=== PATIENT | female | born 1980 | race Caucasian/White ===

== ENCOUNTER 2017-12-09 15:42 | Emergency (ER) | payer MEDICAID, SELFPAY ==
[2017-12-09 15:43] VITALS: BP 143/68; PULSE 74; RESP 16; TEMP 37.7; O2SAT 98; BMI 38.9
--- NOTE | 2017-12-09 16:03 | ED.RN ---
PT LEFT WITHOUT BEING SEEN.
== END 2017-12-09 16:45 | disposition left against medical advice (07) ==
LOC: ED 16:24
PROVIDERS: Emergency Provider Emergency Medicine
DX: Z53.21 Procedure and treatment not carried out due to patient leaving prior to being seen by health care provider (principal)

== ENCOUNTER 2018-07-13 22:09 | Emergency (ER) | payer MEDICAID, SELFPAY ==
[2018-07-13 22:11] VITALS: BP 161/99; PULSE 93; RESP 16; TEMP 37.6; O2SAT 99; BMI 35.0
--- NOTE | 2018-07-13 23:44 | ED.VISSUMM ---
- ER Visit Summary Date of Service: 07/13/18 Chief Complaint: Dental pain History of Present Illness: The patient is a 37 F who presents for 2 weeks of gradually worsening right lower dental pain. She states over the last 2 weeks it is been progressively worsening, with difficulty eating due to pain, hot and cold sensitivity in her right lower molars. She states she has bad teeth and no she needs to see a dentist, however August 28 is the first she can get in. She took some leftover antibiotics last week to see if it would help. She is developing jaw swelling and facial swelling, with tenderness in the right side of the neck. She also states she has what seems to be a bite on her right scalp, which her sister has been able to drain pus from. Patient has had subjective chills and sweats. No cough, shortness of breath, chest pain or other complaints at this time. Denies medical history. Physical Examination: Vital signs: Temperature 99.6, hemodynamically stable, no hypoxia on room air General: well nourished, well developed, nontoxic appearing, laying in bed Skin: warm, dry, no pallor HEENT: normocephalic and atraumatic; erythema and fluctuance with a central crusted over area on the right forehead and extending beyond the hairline into the scalp, tracking towards the ear. Right ear is erythematous with tender auricular lymphadenopathy. Oropharynx shows diffuse dental decay, no focal abscesses, no lesions, no tenderness to percussion of the teeth. PERRL, EOMI, moist mucous membranes. Tenderness to the anterior cervical chain on the right, neck is supple and without meningismus Cardiovascular: regular rate and rhythm without murmurs, no peripheral edema, 2+ pulses all distal extremities Respiratory: No increased work of breathing, lungs are clear to auscultation bilaterally, no rales, rhonchi or wheezing Abdominal: Abdomen is soft, nontender with normoactive bowel sounds, no guarding or rebound, no masses MSK: Moves all extremities, no deformities, normal strength Neuro: Awake and alert, oriented ?4. No facial droop, sensation and motor function intact and symmetric Test Results: Abnormal Lab Results 07/13/18 07/13/18 07/13/18 23:50 23:50 23:50 WBC 14.4 H RBC 4.44 Hgb 13.6 Hct 41.3 MCV 93.0 MCH 30.6 MCHC 32.9 RDW 13.1 RDW Differential 44.2 H Plt Count 211 MPV 11.3 Immature Gran % (Auto) 0.200 Neut % (Auto) 57.6 Lymph % (Auto) 32.4 [place] % (Auto) 8.3 Eos % (Auto) 1.3 Baso % (Auto) 0.2 Absolute Neuts (auto) 8.3 H Absolute Lymphs (auto) 4.66 H Total Counted Not Reportable PT 13.9 INR 1.1 APTT 38.3 H Sodium 138 Potassium 3.3 L Chloride 105 Carbon Dioxide 24.0 Anion Gap 9 BUN 10 Creatinine 0.80 Estim Creat Clear Calc 70.50 Est GFR (MDRD) Af Amer 104 Est GFR (MDRD) Non-Af 86 BUN/Creatinine Ratio 12.5 Glucose 88 Lactic Acid Calcium 8.8 Total Bilirubin 0.40 AST 11 L ALT 24 Alkaline Phosphatase 89 Total Protein 7.9 Albumin 4.2 Globulin 3.7 Albumin/Globulin Ratio 1.1 Serum , Qual 07/13/18 07/13/18 23:50 23:50 WBC RBC Hgb Hct MCV MCH MCHC RDW RDW Differential Plt Count MPV Immature Gran % (Auto) Neut % (Auto) Lymph % (Auto) [place] % (Auto) Eos % (Auto) Baso % (Auto) Absolute Neuts (auto) Absolute Lymphs (auto) Total Counted PT INR APTT Sodium Potassium Chloride Carbon Dioxide Anion Gap BUN Creatinine Estim Creat Clear Calc Est GFR (MDRD) Af Amer Est GFR (MDRD) Non-Af BUN/Creatinine Ratio Glucose Lactic Acid 0.5 Calcium Total Bilirubin AST ALT Alkaline Phosphatase Total Protein Albumin Globulin Albumin/Globulin Ratio Serum , Qual NEGATIVE Clinical Impression(s) from Imaging Studies Chest X-Ray 07/14/18 00:00 IMPRESSION: Normal x-ray examination of the chest. Electronically Signed: Emre Tavarez MD at 1:27 EDT , Service support , Medications Given Discontinued Medications Clindamycin Phosphate 600 mg/ (Dextrose) 54 mls @ 162 mls/hr IV X1 ONE Stop: 07/14/18 01:34 Ketorolac Tromethamine (Toradol) 15 mg IV X1 ONE Stop: 07/13/18 23:41 Last Admin: 07/14/18 00:09 Dose: 15 mg Emergency Department Course and Treatment: Patient presents complaining of dental pain, however her examination is concerning for a right-sided facial cellulitis with concern for abscess tracking subcutaneously down the side of the face, especially given the ear involvement and the pain all the way to the right jaw and neck. Because of the concern for deep infection, a CT with contrast was performed of the face and the neck. She has a leukocytosis of 14.4. negative. Lactate normal. No other abnormalities. Chest x-ray showed no acute findings. Patient received Toradol for pain and was started on IV clindamycin for treatment of suspected facial cellulitis. Final disposition is pending results of the CT of the head and neck to determine whether patient needs admission for IV antibiotics or can be managed outpatient. Treatment Plan: [] Disposition: [] Impression: Right facial cellulitis This note was generated with [employer] software. It may contain incorrect words, spelling, and punctuation that were not noted in review of the chart prior to signing <Hyacinth Saldaña - Last Filed: 07/14/18 01:47> - ER Visit Summary Patient was signed out to me to follow-up on CT results. CT did show small periapical abscess of tooth #19 as well as some mild infiltration of the lower right face possibly consistent with cellulitis. I did take an independent history and examination on this patient. She reports that she had an abscess on her right forehead which she squeezed and had purulent drainage and she does have some remaining redness and a small wound in that area the area of erythema measures about 3 x 3 cm. Although she complains of pain extending down the face and back of the scalp skin appears normal to me in these areas I do not see any erythema of the lower face or otherwise on scalp except as noted above. There is no crepitus. Her ear appears normal on my exam. She is not febrile. She is not tachycardic. She does not have any facial abscess. Patient would prefer to go home on oral antibiotics I do feel this is reasonable. She understands to return for new or worsening symptoms and was instructed on specific signs and symptoms to monitor for. We will discharge with clindamycin. This note was generated with Dragon dictation software. It may contain incorrect words, spelling, and punctuation that were not noted in review of the chart prior to signing <Rahul Fitzpatrick - Last Filed: 07/14/18 02:22> ED Disposition <Hyacinth Saldaña - Last Filed: 07/14/18 01:47> <Rahul Fitzpatrick - Last Filed: 07/14/18 02:22> - Plan for ED Patient: Chief Complaint: Dental Referrals: [facility],Dipti Patel [NON-STAFF] -
--- NOTE | 2018-07-13 23:47 | ED.DCSUM_ITS ---
- ER Visit Summary Date of Service: 07/13/18 Chief Complaint: Dental pain History of Present Illness: The patient is a 37 F who presents for 2 weeks of gradually worsening right lower dental pain. She states over the last 2 weeks it is been progressively worsening, with difficulty eating due to pain, hot and cold sensitivity in her right lower molars. She states she has bad teeth and no she needs to see a dentist, however August 28 is the first she can get in. She took some leftover antibiotics last week to see if it would help. She is developing jaw swelling and facial swelling, with tenderness in the right side of the neck. She also states she has what seems to be a bite on her right scalp , which her sister has been able to drain pus from. Patient has had subjective chills and sweats. No cough, shortness of breath, chest pain or other complaints at this time. Denies medical history. Physical Examination: Vital signs: Temperature 99.6, hemodynamically stable, no hypoxia on room air General: well nourished, well developed, nontoxic appearing, laying in bed Skin: warm, dry, no pallor HEENT: normocephalic and atraumatic; erythema and fluctuance with a central crusted over area on the right forehead and extending beyond the hairline into the scalp, tracking towards the ear. Right ear is erythematous with tender auricular lymphadenopathy. Oropharynx shows diffuse dental decay, no focal abscesses, no lesions, no tenderness to percussion of the teeth. PERRL, EOMI, moist mucous membranes. Tenderness to the anterior cervical chain on the right , neck is supple and without meningismus Cardiovascular: regular rate and rhythm without murmurs, no peripheral edema, 2 + pulses all distal extremities Respiratory: No increased work of breathing, lungs are clear to auscultation bilaterally, no rales, rhonchi or wheezing Abdominal: Abdomen is soft, nontender with normoactive bowel sounds, no guarding or rebound, no masses MSK: Moves all extremities, no deformities, normal strength Neuro: Awake and alert, oriented ?4. No facial droop, sensation and motor function intact and symmetric Test Results: Abnormal Lab Results 07/13/18 07/13/18 07/13/18 23:50 23:50 23:50 WBC 14.4 H RBC 4.44 Hgb 13.6 Hct 41.3 MCV 93.0 MCH 30.6 MCHC 32.9 RDW 13.1 RDW Differential 44.2 H Plt Count 211 MPV 11.3 Immature Gran % (Auto) 0.200 Neut % (Auto) 57.6 Lymph % (Auto) 32.4 [place] % (Auto) 8.3 Eos % (Auto) 1.3 Baso % (Auto) 0.2 Absolute Neuts (auto) 8.3 H Absolute Lymphs (auto) 4.66 H Total Counted Not Reportable PT 13.9 INR 1.1 APTT 38.3 H Sodium 138 Potassium 3.3 L Chloride 105 Carbon Dioxide 24.0 Anion Gap 9 BUN 10 Creatinine 0.80 Estim Creat Clear Calc 70.50 Est GFR (MDRD) Af Amer 104 Est GFR (MDRD) Non-Af 86 BUN/Creatinine Ratio 12.5 Glucose 88 Lactic Acid Calcium 8.8 Total Bilirubin 0.40 AST 11 L ALT 24 Alkaline Phosphatase 89 Total Protein 7.9 Albumin 4.2 Globulin 3.7 Albumin/Globulin Ratio 1.1 Serum , Qual 07/13/18 07/13/18 23:50 23:50 WBC RBC Hgb Hct MCV MCH MCHC RDW RDW Differential Plt Count MPV Immature Gran % (Auto) Neut % (Auto) Lymph % (Auto) [place] % (Auto) Eos % (Auto) Baso % (Auto) Absolute Neuts (auto) Absolute Lymphs (auto) Total Counted PT INR APTT Sodium Potassium Chloride Carbon Dioxide Anion Gap BUN Creatinine Estim Creat Clear Calc Est GFR (MDRD) Af Amer Est GFR (MDRD) Non-Af BUN/Creatinine Ratio Glucose Lactic Acid 0.5 Calcium Total Bilirubin AST ALT Alkaline Phosphatase Total Protein Albumin Globulin Albumin/Globulin Ratio Serum , Qual NEGATIVE Clinical Impression(s) from Imaging Studies Chest X-Ray 07/14/18 00:00 IMPRESSION: Normal x-ray examination of the chest. Electronically Signed: Emre Tavarez MD at 1:27 EDT , Service support , Medications Given Discontinued Medications Clindamycin Phosphate 600 mg/ (Dextrose) 54 mls @ 162 mls/hr IV X1 ONE Stop: 07/14/18 01:34 Ketorolac Tromethamine (Toradol) 15 mg IV X1 ONE Stop: 07/13/18 23:41 Last Admin: 07/14/18 00:09 Dose: 15 mg Emergency Department Course and Treatment: Patient presents complaining of dental pain, however her examination is concerning for a right-sided facial cellulitis with concern for abscess tracking subcutaneously down the side of the face, especially given the ear involvement and the pain all the way to the right jaw and neck. Because of the concern for deep infection, a CT with contrast was performed of the face and the neck. She has a leukocytosis of 14.4. negative. Lactate normal. No other abnormalities. Chest x- ray showed no acute findings. Patient received Toradol for pain and was started on IV clindamycin for treatment of suspected facial cellulitis. Final disposition is pending results of the CT of the head and neck to determine whether patient needs admission for IV antibiotics or can be managed outpatient. Treatment Plan: [] Disposition: [] Impression: Right facial cellulitis This note was generated with [employer] software. It may contain incorrect words, spelling, and punctuation that were not noted in review of the chart prior to signing <Hyacinth Saldaña - Last Filed: 07/14/18 01:47> - ER Visit Summary Patient was signed out to me to follow-up on CT results. CT did show small periapical abscess of tooth #19 as well as some mild infiltration of the lower right face possibly consistent with cellulitis. I did take an independent history and examination on this patient. She reports that she had an abscess on her right forehead which she squeezed and had purulent drainage and she does have some remaining redness and a small wound in that area the area of erythema measures about 3 x 3 cm. Although she complains of pain extending down the face and back of the scalp skin appears normal to me in these areas I do not see any erythema of the lower face or otherwise on scalp except as noted above. There is no crepitus. Her ear appears normal on my exam. She is not febrile. She is not tachycardic. She does not have any facial abscess. Patient would prefer to go home on oral antibiotics I do feel this is reasonable. She understands to return for new or worsening symptoms and was instructed on specific signs and symptoms to monitor for. We will discharge with clindamycin. This note was generated with Dragon dictation software. It may contain incorrect words, spelling, and punctuation that were not noted in review of the chart prior to signing <Rahul Fitzpatrick - Last Filed: 07/14/18 02:22> ED Disposition <Hyacinth Saldaña - Last Filed: 07/14/18 01:47> <Rahul Fitzpatrick - Last Filed: 07/14/18 02:22> - Plan for ED Patient: Chief Complaint: Dental Referrals: [facility],Dipti Patel [NON-STAFF] -
--- NOTE | 2018-07-14 | RAD_ITS ---
STUDY: X-RAY CHEST REASON FOR EXAM: Female, 37 years old. Fever. TECHNIQUE: Single AP portable view of the chest. COMPARISON: None. FINDINGS: The lungs are clear and expanded. There is no demonstrated pleural abnormality. Normal size heart. Normal mediastinum and anny. Normal visualized pulmonary arteries. Normal visualized aortic arch and descending thoracic aorta. Normal visualized thoracic spine. Normal visualized ribs, clavicles, and shoulders. There is no demonstrated abnormality of the visualized soft tissue structures of the upper abdomen. RAD/Chest 1 View (Portable) IMPRESSION: Normal x-ray examination of the chest. Electronically Signed: Emre Tavarez MD at 1:27 EDT , Service support ,
[2018-07-14] MEDS: Ketorolac 15 MG/ML Vial IV (00:09)
[2018-07-14 00:16] VITALS: BP 106/71; PULSE 86; RESP 16; TEMP 36.6; O2SAT 100
[2018-07-14 00:24] LABS: Absolute Lymphocyte Count 4.66 X10^3/ul (0.83-4.51); Absolute Neutrophil Count 8.3 X10^3/uL (2.0-7.7); Basophil# 0.03 X10^3/uL; Basophil% 0.2 % (0-1); Eosinophil# 0.19 X10^3/uL; Eosinophils% 1.3 % (0-5); Hematocrit 41.3 % (37-47); Hemoglobin 13.6 g/dl (12.0-15.0); Lymphocyte # 4.66 X10^3/ul (4.0); Lymphocyte % 32.4 % (19-41); Mean Corp Hgb Conc 32.9 g/gl (32-36); Mean Corpuscular Hgb 30.6 pg (27.0-32.0); Mean Platelet Vol. 11.3 fl (6.2-12.0); Monocyte% 8.3 % (0-10); Neutrophil # 8.27 X10^3/uL (2.7-7.7); Neutrophil % 57.6 % (47-70); Platelet Count 211 K/mm3 (150-450); RBC Distribution Width CV 13.1 % (11.6-14.6); RBC Distribution Width SD 44.2 fl (35.1-43.9); Red Blood Count 4.44 M/mm3 (4.2-5.4); White Blood Count 14.4 K/mm3 (4.4-11.0)
[2018-07-14 00:25] LABS: POSITIVE COUNT NO; POSITIVE DIFFERENTIAL NO; POSITIVE MORPHOLOGY NO
[2018-07-14 00:27] LABS: International Normalized Ratio 1.1; Prothrombin Time (Protime)PT. 13.9 SECONDS (11.7-14.9)
[2018-07-14 00:28] LABS: Partial Thromboplast Time 38.3 Seconds (24.1-36.2)
[2018-07-14 00:36] LABS: ALB/GLOB Ratio 1.1 RATIO (0.9-2.4); AST(SGOT) 11 U/L (15-37); Alanine Aminotransfer ALT/SGPT 24 U/L (13-56); Albumin, Serum 4.2 g/dL (3.2-5.0); Alkaline Phosphatase 89 U/L (45-117); Anion Gap 9 (5-15); BUN 10 mg/dL (7-18); BUN/Creat Ratio 12.5 RATIO (10-20); Calcium,Total 8.8 mg/dL (8.5-10.1); Chloride 105 mmol/L (98-107); EST Glomerular Filtration Rate 86 mL/min (>60); Est Glom Filt Rate - Afr Amer 104 mL/min (>60); Globulin 3.7 g/dL (2.2-4.2); Glucose 88 mg/dL (74-106); Potassium 3.3 mmol/L (3.5-5.1); Protein, Total 7.9 g/dL (6.4-8.2); Sodium Level 138 mmol/L (136-145)
[2018-07-14 00:45] LABS: Lactic Acid 0.5 mmol/L (0.4-2.0)
[2018-07-14 00:49] LABS: Pregnancy, Serum, hCG Quali. NEGATIVE Negative (0-9 Nonpreg)
[2018-07-14 01:14] VITALS: BP 144/100; PULSE 82; RESP 16; O2SAT 98
[2018-07-14 02:11] VITALS: BP 127/108; PULSE 92; RESP 16; O2SAT 95
--- NOTE | 2018-07-14 02:22 | ED.DEP ---
ED Disposition - Plan for ED Patient: Chief Complaint: Dental Instructions: ED Abscess Dental, ED Cellulitis Facial Prescriptions: Clindamycin HCl [Cleocin] 300 mg PO Q8H #30 cap Referrals: [facility],Dipti Patel [NON-STAFF] -
[2018-07-14 02:33] VITALS: BP 134/79; PULSE 89; RESP 16; O2SAT 100
[2018-07-14] MEDS: Acetaminophen 325 MG Tablet 650 MG PO (02:38)
--- NOTE | 2018-07-14 23:41 | CT_ITS ---
STUDY: CT SOFT TISSUE NECK WITH CONTRAST REASON FOR EXAM: Female, 37 years old. Tooth pain and facial swelling. Elevated white blood cell count. RADIATION DOSAGE (If Supplied By Facility): CTDIvol = ( 18.80 ) mGy, DLP = ( 882.02 ) mGycm TECHNIQUE: The patient was scanned in a multi-detector CT scanner. High resolution transaxial imaging was performed following intravenous administration of 75ML ml of Isovue 300 contrast material. Sagittal and coronal images were reconstructed. Individualized dose optimization techniques were used for this CT. COMPARISON: None. FINDINGS: There is mild infiltration of subcutaneous fat overlying the lower right side of the face, which may represent cellulitis. A specific etiology is not evident. There is a small periapical abscess of lower left molar tooth #19. There is no visualized disruption of overlying alveolar cortex and there is no demonstrated adjacent soft tissue swelling or abscess. There are multiple untreated dental caries. Normal bilateral parotid glands. Normal bilateral radio communication coordinator spaces. Normal bilateral parapharyngeal spaces. Normal bilateral carotid spaces. Normal bilateral sublingual and submandibular glands and spaces. Normal visualized nasopharynx. Normal retropharyngeal space. Normal perivertebral space. Normal visualized bilateral faucial tonsils. There is a mildly lobulated prominence of the tongue base, but without a discrete mass, suggestive of lymphoid hyperplasia. Mucosal disease cannot be excluded, and direct visualization is recommended. There are minimally enlarged bilateral level 2 lymph nodes of the neck, with preservation of normal tatianna architecture, consistent with a reactive lymph hyperplasia. There is no demonstrated solid or cystic mass lesion. There is no abnormal contrast enhancement. Normal epiglottis, bilateral vallecula and hypopharynx. The pre-epiglottic and paraglottic adipose spaces are normal. Normal visualized bilateral piriform sinuses, aryepiglottic folds, vocal cords, and arytenoid-cricoid articulations. Normal subglottic trachea. Normal bilateral lobes of the thyroid gland. Normal visualized pulmonary apices. Normal visualized paranasal sinuses. Normal visualized cervical spine. CT/Soft Tissue Neck WITH Contrast IMPRESSION: Small periapical abscess of lower left molar tooth #19, with no demonstrated disruption of overlying cortex or visible evidence for spread of infection into adjacent soft tissues.. Multiple untreated dental caries. Mildly hyperplastic level 2 cervical lymph nodes bilaterally. Lymphoid hyperplasia of the base the tongue. Mild infiltration of subcutaneous fat over the lower right side of the face, possibly representing cellulitis. Specific etiology is not evident. No demonstrated soft tissue mass or abscess. Electronically Signed: Emre Tavarez MD at 2:05 EDT , Service support ,
--- NOTE | 2018-07-14 23:41 | CT_ITS ---
STUDY: CT FACIAL BONES WITH CONTRAST REASON FOR EXAM: Female, 37 years old. To pain and facial swelling RADIATION DOSAGE (If Supplied By Facility): CTDIvol = ( 18.80 ) mGy, DLP = ( 882.02 ) mGycm TECHNIQUE: The patient was scanned in a multi detector CT scanner. Transaxial imaging was performed following the intravenous administration of 75ML ml of Isovue 300 contrast material. Sagittal and coronal images were reconstructed. Individualized dose optimization techniques were used for this CT. COMPARISON: None. FINDINGS: Visualized portions of the brain are unremarkable. No scalp abnormalities. Orbital globes, retro-orbital soft tissues, and periorbital soft tissues are unremarkable soft tissues of the cheek are unremarkable. Evaluation of the gingival soft tissues is limited due to hard beam artifact from the patient's dental amalgam. No definitive periodontal abscess. Belting Inspector spaces and parapharyngeal fat planes are symmetrically preserved. Pharyngeal soft tissues are normal. Airway is patent. Salivary glands are unremarkable. Shot[place] bilateral submandibular and cervical chain lymph nodes. No frontal bone or nasal bone fracture. No orbital wall or maxillary sinus wall fracture. Zygomatic arches and pterygoid plates are intact. Temporomandibular joints are normal alignment. No mandibular fracture. Dental caries noted within the second left mandibular molar with subtle periapical lucency surrounding the root. Normal visualized paranasal sinuses. CT/Sinus/Facial Bone WITH Contras IMPRESSION: 1. Dental caries within the left second mandibular molar with periapical lucency suggesting small periapical abscess. No definitive adjacent gingival soft tissue abnormality, though evaluation is limited due to hard beam artifact from patient's dental amalgam. Electronically Signed: Zack De Jesus MD at 2:11 EDT Tel , Service support ,
== END 2018-07-14 02:39 | disposition home or self-care (01) ==
LOC: ED 23:41
PROVIDERS: Emergency Provider Emergency Medicine
DX: K04.7 Periapical abscess without sinus (principal); L03.211 Cellulitis of face; B96.89 Other specified bacterial agents as the cause of diseases classified elsewhere
CPT/HCPCS: 70487; 70491; 71045; 80053; 83605; 84703; 85025; 85610; 85730; 87040; 96365; 96375; 99284; J7030; Q9967; A4216

== ENCOUNTER 2019-07-08 11:30 | Emergency (ER) | payer MEDICAID, SELFPAY ==
[2019-07-08 11:31] VITALS: BP 159/83; PULSE 102; RESP 16; TEMP 36.4; O2SAT 99; BMI 33.5
--- NOTE | 2019-07-08 12:05 | ED.DCSUM_ITS ---
History of Present Illness Informant: Patient Occurred: Yesterday Mechanism/Context: - - no injury Onset: Yesterday Context: Gradual Onset Timing: Continuous Quality of Pain: Aching Location: right ring finger Current Severity: Severe Maximum Severity: Severe Worsened by: nothing Relieved by: nothing Associated Symptoms: Negative for: Parasthesia, Weakness, Loss of Funtion Narrative: 38-year-old female [id number] presents requesting removal of her ring on her right ring finger. Noticed that if he began to have swelling in her hands yesterday which she feels is from her being working outside in the heat. No trauma or injury. No numbness or tingling. She has been unsuccessful removing it at home. She denies any other review of systems. Tetanus Immunization: Unknown Prior similar symptoms: No Recent Illness/Hospitalization: No <David Walters - Last Filed: 07/08/19 12:06> <Jersey Hennessy - Last Filed: 07/08/19 14:48> Chief Complaint: Foreign Body Past Medical History Prior records reviewed: Yes Past Medical History: None Surgical History: noncontributory Smoking Status: Current every day smoker <David Walters - Last Filed: 07/08/19 12:06> <Jersey Hennessy - Last Filed: 07/08/19 14:48> - Allergies and Home Meds Allergies/Adverse Reactions: Allergies No Known Allergies Allergy (Verified 07/08/19 11:31) Primary Care Physician: Norris Ambriz MD [NON-STAFF] - Care Physician,No Primary [Primary Care Provider] - Review of Systems All systems negative except as indicated General: Denies: Chills, Fever Musculoskeletal: Reports: Swelling, Extremity Pain <David Walters - Last Filed: 07/08/19 12:06> Physical Exam Vital Signs/Narrative: Vital Signs Temp Pulse Resp BP Pulse Ox 07/08/19 11:31 97.5 F L 102 H 16 159/83 H 99 Inital Vital Signs reviewed: Yes Right Finger: - - Patient has swelling of all 5 fingers on both hands, no redness no signs of trauma no evidence of the rash, she is not having any pain on either hand. The ring on her right index finger is stuck just distal to the MCP joint. Cap refill and sensation are normal. Limited range of motion due to swelling. General: Well nourished, Well developed Head: Normocephalic, Atraumatic Eyes: Perrl, EOMI ENT: No Trauma Neck: Nontender, Full ROM Cardiovascular: Regular rate, Regular rhythm Respiratory: No distress, CTA bilaterally, Chest nontender Back: Nontender Skin: Normal color, No rash, No Trauma Neurological: Alert, Oriented x3 <David Walters - Last Filed: 07/08/19 12:06> Vital Signs/Narrative: Vital Signs Temp Pulse Resp BP Pulse Ox 07/08/19 11:31 97.5 F L 102 H 16 159/83 H 99 <Jersey eHnnessy - Last Filed: 07/08/19 14:48> Diagnostic/Tx/Re-eval - Medical Decision Making Ring on right index finger was removed by nursing staff without difficulty. On repeat evaluation the patient has normal range of motion she is no longer having pain her capillary refill and sensation are both normal as is her two-point discrimination. There are no signs of infection. Mutually agreed that x-rays not indicated. Patient will be discharged and advised on return precautions <David Walters - Last Filed: 07/08/19 12:06> - Medical Decision Making I saw the patient in conjunction with the physician fast food sales assistant. She has a ring stuck on her thumb. Distal swelling on exam. Neurovascular intact. Rings were cut off by nursing. Patient tolerated this well. Outpatient follow-up. <Jersey Hennessy - Last Filed: 07/08/19 14:48> ED Disposition <RomeoDavid - Last Filed: 07/08/19 12:06> <GerhardJersey - Last Filed: 07/08/19 14:48> - Plan for ED Patient: Disposition: Home or Assisted Living Diagnosis: Ring removed from right ring finger Instructions: FOREIGN BODY, Soft Tissue [Removed] Prescriptions: Azithromycin [Zithromax Z-Seferino] 250 mg PO UD #1 box Prescription Printed Referrals: Care Physician,No Primary [Primary Care Provider] - Norris Ambriz MD [NON-STAFF] -
== END 2019-07-08 12:18 | disposition home or self-care (01) ==
PROVIDERS: Emergency Provider Physician Assistant Medical
DX: S60.454A Superficial foreign body of right ring finger, initial encounter (principal); X58.XXXA Exposure to other specified factors, initial encounter; Y93.89 Activity, other specified; F17.200 Nicotine dependence, unspecified, uncomplicated
CPT/HCPCS: 99282

== ENCOUNTER 2024-10-13 13:26 | Emergency (ER) | payer MEDICAID, SELFPAY ==
[2024-10-13 13:26] VITALS: BP 170/92; PULSE 95; RESP 14; TEMP 36.6; O2SAT 99; BMI 43.0
--- NOTE | 2024-10-13 13:32 | EDS_ITS ---
HPI History of Present Illness Chief Complaint: Dental Informant: patient Onset/Context/Timing Onset: Yesterday Context: Gradual Onset Timing: Continuous Quality: Stabbing, aching Location: Left upper premolar Worsened by: Activity Relieved by: - (Nothing) Associated Symptoms Assocated Symptom - Dental: jaw swelling, face swelling, cold sensitivity and hot sensitivity; Negative for fever Narrative Narrative: Patient presents with dental pain that has been getting worse since yesterday. Patient states it is gradually getting worse. Patient states that she woke up today and felt some swelling over her left upper premolars and left cheek. Patient denies any fevers but admits to some subjective chills. Patient was to facial and jaw swelling. Patient also admits to hot and cold sensitivity. Patient states she has been trying to contact the dentist but is unsure if she can see a dentist who takes her insurance. PFSH PFSH Medical History no medical history no medical history Home Medications ?Medication ?Instructions ?Recorded ?Last Taken ?Type azithromycin 250 mg tablet 250 mg PO UD ##1 07/08/19 Unknown Rx penicillin V potassium 500 mg 500 mg PO 4X/DAY #40 tabs 10/13/24 Unknown Rx tablet Allergy/AdvReac Type Severity Reaction Status Date / Time No Known Allergies Allergy Verified 10/13/24 13:26 Surgical History (Updated 10/13/24 @ 13:[address] Miko Santos DO) Hx of section Social History Smoking Status: Current every day smoker ROS ROS ED Constitutional Constitutional ED: Denies chills or fever(s) Eyes Eyes: Denies blurry vision or change in vision ENT ENT ED: Denies rhinorrhea or sore throat Cardiovascular Cardiovascular: Denies chest pain or palpitations Respiratory/Chest Respiratory/Chest: Denies cough or dyspnea Gastrointestinal Gastrointestinal: Denies nausea or vomiting Genitourinary Genitourinary ED: Denies dysuria or hematuria Musculoskeletal Musculoskeletal: Denies back pain or neck pain Integumentary Denies abscess or rash Neurologic Neurologic: Denies headache(s) or weakness Allergic/Immunologic Allergic/Immunologic ED: Denies mouth swelling or urticaria EXAM Physical Exam Const Vital Signs: 10/13/24 13:26 Temperature 98 F Temperature Source Temporal Pulse Rate 95 Respiratory Rate 14 Blood Pressure 170/92 H Blood Pressure Mean 118 Pulse Ox 99 Oxygen Delivery Method Room Air Positive well nourished and well developed General Appearance ED: well developed and NAD HEENT HEENT Narrative: There are multiple dental caries noted. There is tenderness over the left upper first premolar. There is mild gingival edema around this tooth. There is no fluctuance. There is no evidence of any abscess. Oropharynx is clear. Airway is patent. Neck is supple. Trachea is midline. There is no sublingual edema. There is no evidence of Ramesh's angina. Mouth ED: Yes oral and palatal mucosa normal Mouth: oral and palatal mucosa normal Teeth and Gingiva: caries and gingiva abnormal Positive for gingival edema Throat: posterior oropharynx normal Eyes PERRL and EOMs intact bilaterally Neck supple and no JVD General: Negative for anterior neck swelling, tenderness or submandibular swelling Neuro oriented x3, CN's II-XII intact bilaterally, moves all extremities, no focal motor deficits and no sensory deficits noted Sensorium / Orientation: alert Motor Exam: strength 5/5 throughout MDM MDM MDM Narrative Medical decision making narrative: Smoking cessation was discussed. Patient was advised that these are infected dental caries. Patient was given a dose of Pen-Vee K here. Patient was given a prescription for Pen-Vee K. Patient was instructed to take Tylenol or ibuprofen as needed for pain. Patient was instructed to follow-up with a dentist. Patient was given a dental referral list. Patient was instructed to return if worse in any way. Patient understood and was agreeable with the plan. All questions were answered. Discharge Plan Triage Chief Complaint: Dental ED Provider: Miko Santos Dx/Rx/DC Orders Clinical Impression: Infected dental caries, Tobacco use Instructions: ED Dental Pain, ED Dental Cavity Prescriptions: New penicillin V potassium 500 mg tablet 500 mg PO 4X/DAY Qty: 40 0RF No Action azithromycin 250 MG tablet 250 mg PO UD Qty: 1 0RF Rx Instructions: TAKE 2 TABLETS 1ST DAY THEN 1 TABLET DAILY FOR NEXT 4 DAYS. Primary Care Provider: Care Physician,No Primary Referrals: Care Physician,No Primary [Primary Care Provider] - Dentist,Your [STAFF PHYSICIAN] - 5-7 Days Print Language: Mongolian Disposition Disposition: Home, Self Care
[2024-10-13] MEDS: Penicillin Vk 250 MG Tablet 500 MG PO (14:06)
== END 2024-10-13 14:09 | disposition home or self-care (01) ==
PROVIDERS: Emergency Provider Emergency Medicine; Visit Provider Emergency Medicine
DX: K04.7 Periapical abscess without sinus (principal); K02.9 Dental caries, unspecified; F17.200 Nicotine dependence, unspecified, uncomplicated
CPT/HCPCS: 99282

== ENCOUNTER 2025-02-13 08:48 | Emergency (ER) | payer MEDICAID, SELFPAY ==
[2025-02-13 08:48] VITALS: BP 169/97; PULSE 81; RESP 19; TEMP 36.8; O2SAT 98; BMI 40.8
[2025-02-13] MEDS: Ibuprofen 600 MG Tablet PO (09:11)
[2025-02-13] MEDS: Amox/Clavulanate 875 MG Tablet PO (09:12)
--- NOTE | 2025-02-13 09:26 | EDS_ITS ---
HPI History of Present Illness Chief Complaint: Dental Informant: patient and spouse/S.O. Narrative Narrative: Right upper dental pain yesterday hot cold sensitivities. We can warming the right side of the face. Call your dentist appointment 1 week. No antibiotic allergies. No fevers. No trouble swallowing. History of similar in the past she has had extractions multiple ones in the last year. States there are plans for full extraction of her upper dentition. Prior similar symptoms: Yes PFSH PFSH Home Medications ?Medication ?Instructions ?Recorded ?Last Taken ?Type azithromycin 250 mg tablet 250 mg PO UD ##1 07/08/19 U nknown Rx ibuprofen 600 mg tablet 600 mg PO Q8H PRN PRN pain # 10 10/13/24 Unknown Rx TABLETS penicillin V potassium 500 mg 500 mg PO 4X/DAY #40 tab s 10/13/24 Unknown Rx tablet amoxicillin 875 mg-potassium 875 mg PO Q12H #20 TABLET S 02/13/25 Unknown Rx clavulanate 125 mg tablet ibuprofen 600 mg tablet 600 mg PO Q6H PRN PRN pain # 20 02/13/25 Unknown Rx TABLETS Allergy/AdvReac Type Severity Reaction Status Date / Time No Known Allergies Allergy Verified 02/13/25 08:48 Surgical History Hx of section Social History Smoking Status: Current every day smoker tobacco type: cigarettes ROS ROS ED Constitutional Constitutional ED: Denies chills, fever(s) or sweats ENT ENT ED: Reports other Details: Facial swelling, dental pain ; Denies sore throat Cardiovascular Cardiovascular: Denies chest pain, leg edema, palpitations or racing heartbeat Respiratory/Chest Respiratory/Chest: Denies cough, dyspnea or dyspnea on exertion Gastrointestinal Gastrointestinal: Denies abdominal pain, diarrhea, nausea or vomiting Genitourinary Genitourinary ED: Denies dysuria, hematuria or urinary frequency Musculoskeletal Musculoskeletal: Denies back pain, extremity pain or neck pain Integumentary Denies rash or wounds Neurologic Neurologic: Denies headache(s), paresthesias or weakness EXAM Physical Exam Const Vital Signs: 02/13/25 08:48 Temperature 98.3 F Temperature Source Oral Pulse Rate 81 Respiratory Rate 19 H Blood Pressure 169/97 H Blood Pressure Mean 121 Pulse Ox 98 Oxygen Delivery Method Room Air Positive well nourished and well developed General Appearance ED: well developed and NAD HEENT Reports moist mucous membranes HEENT Narrative: There has been previously extracted teeth for through 12, there is decayed tooth 13. There is focal swelling of the gum #4. There is no fluctuance of the gumline. There is maxillary swelling. Dental fillings of tooth #2 and 3 no tenderness to percussion. No sublingual edema. Airway patent. No trismus. normocephalic Eyes General Eye ED: Yes normal appearance of both eyes Neck full ROM Chest Wall Chest: Negative for tenderness Resp normal respiratory effort and normal air movement Effort and Inspection: symmetric chest movement; Negative for respiratory distress Cardio regular rate, regular rhythm and no murmurs Peripheral Pulses: pulses 2+ throughout GI normal to inspection, nondistended, normoactive bowel sounds and non-tender Palpation: Negative for guarding or rebound tenderness present Extremity normal to inspection General Extremety ED: Negative for edema or tenderness General Extremity: Negative for edema Neuro oriented x3 and no sensory deficits noted Sensorium / Orientation: awake and alert Skin no rashes or lesions noted and no wounds MDM MDM MDM Narrative Medical decision making narrative: Interventions / MDM: Differential diagnosis: Gingivitis, abscess of the gums Diagnosis considered but do not suspect: No clinical signs of Ramesh angina My EKG interpretation: N/A Imaging independently reviewed and interpreted by myself: N/A External documents reviewed: N/A Test considered but not ordered:N/A ED course: Patient's. Her primary issue is gum #4 likely abscessed and maxillary. There is no fluctuance of the gumline amenable to incision and drainage. I will start her on Augmentin and ibuprofen. She will keep her follow-up with her dentist. Reported similar symptoms swelling this past September for which she was seen that improved with antibiotics. All her questions were answered. Re-evaluation: stable Disposition discussed with patient/family/significant other: Patient and significant other Case discussed with consulting clinician: N/A This note was generated with [employer] dictation software. It may contain incorrect words, spelling, and punctuation that were not noted in checking the note before signing. Discharge Plan Triage Chief Complaint: Dental ED Provider: Paolo Sumner Dx/Rx/DC Orders Clinical Impression: Gingivitis, Gingival abscess Instructions: ED Dental Abscess Prescriptions: New ibuprofen 600 mg tablet 600 mg PO Q6H PRN PRN (Reason: pain) Qty: 20 0RF amoxicillin-pot clavulanate 875-125 mg tablet 875 mg PO Q12H Qty: 20 0RF No Action azithromycin 250 MG tablet 250 mg PO UD Qty: 1 0RF Rx Instructions: TAKE 2 TABLETS 1ST DAY THEN 1 TABLET DAILY FOR NEXT 4 DAYS. penicillin V potassium 500 mg tablet 500 mg PO 4X/DAY Qty: 40 0RF ibuprofen 600 mg tablet 600 mg PO Q8H PRN PRN (Reason: pain) Qty: 10 0RF Primary Care Provider: Care Physician,No Primary Referrals: Care Physician,No Primary [Primary Care Provider] - Activity Restrictions/Additional Instructions: Take and finish antibiotic as prescribed. Follow-up with your dentist as scheduled. Print Language: German Disposition Disposition: Home, Self Care
[2025-02-13 09:32] VITALS: BP 136/78; PULSE 64; RESP 18; TEMP 36.6; O2SAT 99
== END 2025-02-13 09:33 | disposition home or self-care (01) ==
LOC: ED 09:27
PROVIDERS: Emergency Provider Emergency Medicine; Visit Provider Emergency Medicine
DX: K05.20 Aggressive periodontitis, unspecified (principal); K05.10 Chronic gingivitis, plaque induced; K02.9 Dental caries, unspecified; F17.210 Nicotine dependence, cigarettes, uncomplicated; Z98.818 Other dental procedure status; Z98.811 Dental restoration status
CPT/HCPCS: 99283

== ENCOUNTER 2025-07-20 11:16 | Emergency (ER) | payer MEDICAID, SELFPAY ==
[2025-07-20 11:17] VITALS: BP 135/82; PULSE 89; RESP 16; TEMP 37; O2SAT 98; BMI 41.8
[2025-07-20 17:21] VITALS: BP 123/73; PULSE 72; RESP 20; O2SAT 96
--- OUTSIDE RECORDS SUMMARY | 2025-07-20 17:29 | XMS RPT_ITS | CCD ---
Author Organization [facility] Care Team Providers Care Auto Body Mechanic Apprentice Name Role Phone Aleyda Davies Unavailable Unavailable LYSSA DUNAWAY Unavailable Unavailable JOEL SERVIN DO Admitting Unavailable VOLJOEL Serrato DO Attending Unavailable VOLJOEL Serrato DO Primary Care Unavailable NO, DOCTOR ON Consulting Unavailable NO, DOCTOR ON Referring Unavailable Unavailable Primary Care Provider Unavaillorenzo e MG GARRIDO Attending Unavailable NO, PHYSICIAN Primary Care Unavailable MG GARRIDO Admitting Unavailable NO, PHYSICIAN Primary Care Unavailable ANDRES DE LA TORRE Attending Unavailable Required, No Pcp Unavailable Unavailable Ru Castro Unavailable Care Physician, No Primary Primary Care Unava ilable Paolo Sumner Attending Unavailable Care Physician, No Primary Primary Care Unava ilable Miko Santos Attending Unavailable Medications Current Medications Medication Drug Class(es) Dates Sig (Normalized) Sig (Original) ciprofloxacin 3 mg/ml / dexamethasone 1 mg/ml otic suspension (2 sources) Corticosteroid, Quinolone Antimicrobial Start: 04-21-2022 End: 04-27-2022 Ciprodex 0.3%-0.1% otic suspension ; 4 drop(s) in each affected ear 2 times a day Quantity: 1 Refills: 0 Ordered: 21-Apr-2022 Ru Castro Start: 21-Apr-2022 End: 27-Apr-2022 Generic Substitution Allowed Comments: For the ear.Shake well before use. Start: 08-11-2020 End: 08-18-2020 ciprofloxacin-dexamethasone (CIPRODEX) 0.3-0.1 % otic suspension Place 4 drops into the left ear 2 times daily for 7 days 1 Bottle 0 08/11/2020 08/18/2020 Active Comment on above: For the ear.Shake we ll before use. ibuprofen 800 mg oral tablet (2 sources) Nonsteroidal Anti-inflammatory Drug Start: 08-11-2020 take 1 tablet by mouth every eight hours as needed for pain ibuprofen (ADVIL;MOTRIN) 800 MG tablet Take 1 tablet by mouth every 8 hours as needed for Pain or Fever 30 tablet 0 08/11/2020 Active Start: 08-11-2020 ibuprofen (ADV IL;MOTRIN) tablet 800 mg naproxen 500 mg oral tablet (1 source) Nonsteroidal Anti-inflammatory Drug Start: 04-21-2022 End: 04-27-2022 take 1 tablet by mouth twice daily at mealtime naproxen 500 mg oral tablet ; 1 tab(s) orally 2 times a day TAKE WITH FOOD AND DRINK Quantity: 14 Refills: 0 Ordered: 21-Apr-2022 Ru Castro Start: 21-Apr-2022 End: 27-Apr-2022 Generic Substitution Allowed Comments: Check with your doctor before becoming .May cause drowsiness or dizziness.Obtain medical advice before taking any non-prescription drugs as some may affect the action of this medication.Take with food or milk. Comment on above: Check with your doctor before becoming p regnant.May cause drowsiness or dizziness.Obtain medical advice before taking any non-prescription drugs as some may affect the action of this medication.Take with food or milk. Problems Problem Classification Problem Date Documented Da te Episodic/Chronic Disorders of teeth and jaw (1 source) Other specified disorders of teeth and supporting structures; Translations: [Other specified disorders of teeth and supporting structures] Onset: 02-19-2025 Episodic Other ear and sense organ disorders (1 source) Acute otitis externa; Translations: [Infective otitis externa, unspecified] 04-21-2022 Chronic Other ear and sense organ disorders (1 source) Infective otitis externa of left ear; Translations: [Infective otitis externa of left ear] Unclassified (2 sources) LEFT EAR PAIN 04-21-2022 Comment on above: LEFT EAR PAIN Unclassified (1 source) Acute diffuse otitis externa of left ear 04-21-2022 Results Test Name Value Interpretation Reference Range Facil ity Emergency Department Summary on 02-13-2025 Emergency Department Summary [facility] Medical Records Department [address] [place] [address] Emergency Department Summary 02/13/25 MR#: [id number] Acct: [id number] Name: SHERRI OROZCO Rep #: [id number] : 1980 44 From: Paolo Acosta PCP: Care Physician,No Primary Status:REG ER Location: ED HPI History of Present Illness Chief Complaint: Dental Informant: patient and spouse/S.O. Narrative Narrative: Right upper dental pain yesterday hot cold sensitivities. We can warming the right side of the face. Call your dentist appointment 1 week. No antibiotic allergies. No fevers. No trouble swallowing. History of similar in the past she has had extractions multiple ones in the last year. States there are plans for full extraction of her upper dentition. Prior similar symptoms: Yes PFSH PFSH Home Medications ???Medication ???Instructions ???Recorded ???Last Taken ???Type azithromycin 250 mg tablet 250 mg PO UD ##1 07/08/19 Unknown Rx ibuprofen 600 mg tablet 600 mg PO Q8H PRN PRN pain #10 Unknown Rx TABLETS penicillin V potassium 500 mg 500 mg PO 4X/DAY #40 tabs 10/13/24 Unknown Rx tablet amoxicillin 875 mg-potassium 875 mg PO Q12H #20 TABLETS 5 Unknown Rx clavulanate 125 mg tablet ibuprofen 600 mg tablet 600 mg PO Q6H PRN PRN pain #20 Unknown Rx TABLETS Allergy/AdvReac Type Severity Reaction Status Date / Time No Known Allergies Allergy Verified 02/13/25 08:48 Surgical History Hx of section Social History Smoking Status: Current every day smoker tobacco type: cigarettes ROS ROS ED Constitutional Constitutional ED: Denies chills, fever(s) or sweats ENT ENT ED: Reports other Details: Facial swelling, dental pain ; Denies sore throat Cardiovascular Cardiovascular: Denies chest pain, leg edema, palpitations or racing heartbeat Respiratory/Chest Respiratory/Chest: Denies cough, dyspnea or dyspnea on exertion Gastrointestinal Gastrointestinal: Denies abdominal pain, diarrhea, nausea or vomiting Genitourinary Genitourinary ED: Denies dysuria, hematuria or urinary frequency Musculoskeletal Musculoskeletal: Denies back pain, extremity pain or neck pain Integumentary Denies rash or wounds Neurologic Neurologic: Denies headache(s), paresthesias or weakness EXAM Physical Exam Const Vital Signs: 02/13/25 08:48 Temperature 98.3 F Temperature Source Oral Pulse Rate 81 Respiratory Rate 19 H Blood Pressure 169/97 H Blood Pressure Mean 121 Pulse Ox 98 Oxygen Delivery Method Room Air Positive well nourished and well developed General Appearance ED: well developed and NAD HEENT Reports moist mucous membranes HEENT Narrative: There has been previously extracted teeth for through 12, there is decayed tooth 13. There is focal swelling of the gum #4. There is no fluctuance of the gumline. There is maxillary swelling. Dental fillings of tooth #2 and 3 no tenderness to percussion. No sublingual edema. Airway patent. No trismus. normocephalic Eyes General Eye ED: Yes normal appearance of both eyes Neck full ROM Chest Wall Chest: Negative for tenderness Resp normal respiratory effort and normal air movement Effort and Inspection: symmetric chest movement; Negative for respiratory distress Cardio regular rate, regular rhythm and no murmurs Peripheral Pulses: pulses 2+ throughout GI normal to inspection, nondistended, normoactive bowel sounds and non-tender Palpation: Negative for guarding or rebound tenderness present Extremity normal to inspection General Extremety ED: Negative for edema or tenderness General Extremity: Negative for edema Neuro oriented x3 and no sensory deficits noted Sensorium / Orientation: awake and alert Skin no rashes or lesions noted and no wounds MDM MDM MDM Narrative Medical decision making narrative: Interventions / MDM: Differential diagnosis: Gingivitis, abscess of the gums Diagnosis considered but do not suspect: No clinical signs of Ramesh angina My EKG interpretation: N/A Imaging independently reviewed and interpreted by myself: N/A External documents reviewed: N/A Test considered but not ordered:N/A ED course: Patient's. Her primary issue is gum #4 likely abscessed and maxillary. There is no fluctuance of the gumline amenable to incision and drainage. I will start her on Augmentin and ibuprofen. She will keep her follow-up with her dentist. Reported similar symptoms swelling this past September for which she was seen that improved with antibiotics. All her questions were answered. Re-evaluation: stable Disposition discussed with patient/family/significa nt other: Patient and signific (more content not included)... Normal [facility] Emergency Department Summary on 10-13-2024 Emergency Department Summary [facility] Medical Records Department [address] [place] [address] Emergency Department Summary 10/13/24 MR#: [id number] Acct: [id number] Name: SHERRI OROZCO Rep #: [id number] : 1980 43 From: Miko Santos DO PCP: Care Physician,No Primary Status:DEP ER Location: ED HPI History of Present Illness Chief Complaint: Dental Informant: patient Onset/Context/Timing Onset: Yesterday Context: Gradual Onset Timing: Continuous Quality: Stabbing, aching Location: Left upper premolar Worsened by: Activity Relieved by: - (Nothing) Associated Symptoms Assocated Symptom - Dental: jaw swelling, face swelling, cold sensitivity and hot sensitivity; Negative for fever Narrative Narrative: Patient presents with dental pain that has been getting worse since yesterday. Patient states it is gradually getting worse. Patient states that she woke up today and felt some swelling over her left upper premolars and left cheek. Patient denies any fevers but admits to some subjective chills. Patient was to facial and jaw swelling. Patient also admits to hot and cold sensitivity. Patient states she has been trying to contact the dentist but is unsure if she can see a dentist who takes her insurance. PFSH PFSH Medical History no medical history no medical history Home Medications ???Medication ???Instructions ???Recorded ???Last Taken ???Type azithromycin 250 mg tablet 250 mg PO UD ##1 07/08/19 Unknown Rx penicillin V potassium 500 mg 500 mg PO 4X/DAY #40 tabs 10/13/24 Unknown Rx tablet Allergy/AdvReac Type Severity Reaction Status Date / Time No Known Allergies Allergy Verified 10/13/24 13:26 Surgical History (Updated 10/13/24 @ 13:[address] Miko Santos DO) Hx of section Social History Smoking Status: Current every day smoker ROS ROS ED Constitutional Constitutional ED: Denies chills or fever(s) Eyes Eyes: Denies blurry vision or change in vision ENT ENT ED: Denies rhinorrhea or sore throat Cardiovascular Cardiovascular: Denies chest pain or palpitations Respiratory/Chest Respiratory/Chest: Denies cough or dyspnea Gastrointestinal Gastrointestinal: Denies nausea or vomiting Genitourinary Genitourinary ED: Denies dysuria or hematuria Musculoskeletal Musculoskeletal: Denies back pain or neck pain Integumentary Denies abscess or rash Neurologic Neurologic: Denies headache(s) or weakness Allergic/Immunologic Allergic/Immunologic ED: Denies mouth swelling or urticaria EXAM Physical Exam Const Vital Signs: 10/13/24 13:26 Temperature 98 F Temperature Source Temporal Pulse Rate 95 Respiratory Rate 14 Blood Pressure 170/92 H Blood Pressure Mean 118 Pulse Ox 99 Oxygen Delivery Method Room Air Positive well nourished and well developed General Appearance ED: well developed and NAD HEENT HEENT Narrative: There are multiple dental caries noted. There is tenderness over the left upper first premolar. There is mild gingival edema around this tooth. There is no fluctuance. There is no evidence of any abscess. Oropharynx is clear. Airway is patent. Neck is supple. Trachea is midline. There is no sublingual edema. There is no evidence of Ramesh's angina. Mouth ED: Yes oral and palatal mucosa normal Mouth: oral and palatal mucosa normal Teeth and Gingiva: caries and gingiva abnormal Positive for gingival edema Throat: posterior oropharynx normal Eyes PERRL and EOMs intact bilaterally Neck supple and no JVD General: Negative for anterior neck swelling, tenderness or submandibular swelling Neuro oriented x3, CN's II-XII intact bilaterally, moves all extremities, no focal motor deficits and no sensory deficits noted Sensorium / Orientation: alert Motor Exam: strength 5/5 throughout MDM MDM MDM Narrative Medical decision making narrative: Smoking cessation was discussed. Patient was advised that these are infected dental caries. Patient was given a dose of Pen-Vee K here. Patient was given a prescription for Pen-Vee K. Patient was instructed to take Tylenol or ibuprofen as needed for pain. Patient was instructed to follow-up with a dentist. Patient was given a dental referral list. Patient was instructed to return if worse in any way. Patient understood and was agreeable with the plan. All questions were answered. Discharge Plan Triage Chief Complaint: Dental ED Provider: Miko Santos Dx/Rx/DC Orders Clinical Impression: Infected dental caries, Tobacco use Instructions: ED Dental Pain, ED Dental Cavity Prescriptions: New penicillin V potassium 500 mg tablet 500 mg PO 4X/DAY Qty: 40 0RF No Action azithromycin 250 MG tablet 250 mg PO UD Qty: 1 0RF Rx Instructions: TAKE (more content not included)... Normal [facility] Provider Note - ED v3on - Provider Note - ED v3 Provider Note: Chart Review: HISTORY OF PRESENTING ILLNESS SHERRI is a 41 year old Female and was seen by me at 21-Apr-2022 13:00 for a chief complaint of ear pain. The historian is the patientsignificant other. Triage Information: Most recent Vital Sign Value Date Presenting Symptoms: earache.Located in the left and ear(s) area. Quality is aching, pressure, sharp, shooting and throbbing. Context is Unknown. The symptoms started yesterday. The timing is gradual onset, constant and worsening. Pertinent history is none related to reason for visit. PAST MEDICAL HISTORY ALLERGIES/INTOLERANCES: No Known Allergies HEALTH HISTORY: No documented data. OUTPATIENT MEDICATIONS: Home Medications Review Status for Reconciliation: Complete Med Status: Patient Currently Takes Medications Drug Name: Ciprodex 0.3%-0.1% otic suspension Instructions: 4 drop(s) in each affected ear 2 times a day Drug Name: naproxen 500 mg oral tablet Instructions: 1 tab(s) orally 2 times a day TAKE WITH FOOD AND DRINK SIGNIFICANT EVENTS: No documented data. REVIEW OF SYSTEMS CONSTITUTIONAL: Negative for: chills, fever and malaise ENMTEars: POSITIVE for: hearing disturbance and pain Negative for: discharge and itching Nose: Negative for: congestion and discharge Mouth/Teeth: (left jaw pain) PHYSICAL EXAM CONSTITUTIONAL: Well appearing, well nourished, awake, alert, oriented to person, place, time/situation and in no apparent distress. HENMT: Head Examination: atraumatic Face: no signs of abnormality Ear: - (left TM not visible given AOE requiring an each wick.) Nose: normal inspection Mouth: normal mouth inspection Teeth: no visible abnormalities EYES: Clear bilaterally, pupils equal, round and reactive to light. CARDIOVASCULAR: Normal rate, regular rhythm. NEUROLOGICAL: Alert and oriented, no focal deficits, no motor or sensory deficits. no facial asymmetry. HEME/LYMPH: No pre/post. auricular, ant/post. cervical, supraclavicular or inguinal lymphadenopathy. CRITICAL CARE VITAL SIGNS: T PRBP SpO2O2(LPM) %FiO2 Method 21-Apr-2022 12:58:[id number] 100RA MDM MDM/ED COURSE: 1) Left AOE: tx with ear wick, application of topical ciprodex & use of naproxen for pain. pt is not diabetic, no exhibiting any neuro findings & would do well as an outpatient.Differential Diagnosis: influenza, laryngitis, otitis externa, otitis media, pharyngitis, rhinitis, sinusitis and tonsillitis Discussed Findings with: patient and family Data Reviewed: vital signs Conducted Detailed Discussion with Patient and/or Guardian Regarding: need for outpatient follow-up Special Observations: no evidence of discomfort and smiling PROGRESS NOTE Procedure performed by: ut Administrative Assistant Coordinator(s): (Shazia Lomeli< [facility]) Findings: (left AOE note don exam requiring ear wick) Specimen: no Estimated Blood Loss (mL): none Post-Procedure Diagnosis: insertion left ear wick Name/Description of the procedure: insertion ear wick . Indications: left AOE - severe. . Anatomical location: left EAC. Local anesthesia administered: none. Procedure Details: pt laying right lateral decubitus, distracted the auricle to improve insertion of ear wick, using gentle pressure, the wick was inserted pt tolerated as expected. . DISPOSITION Diagnosis/Annotation: ED Dx Name:Acute diffuse otitis externa of left ear Code:H60.312 Disposition: discharged CONSULT CRITICAL CARE TIME Is this a critically ill patient: no Electronic Signatures: Ru Castro (PAC) (Signed 21-Apr-2022 14:20) Authored: HPI, PMH, ROS, PE, Results/Vital Signs, MDM/ED Course, Procedure, Clinical Impression, Attestation, Chart Review, Scores Last Updated: 21-Apr-2022 14:20 by Ru Castro (PAC) [facility] ED Provider Noteon ED Provider Note [facility] ED EMERGENCY DEPARTMENT ENCOUNTER Pt Name: Sherri Orozco Birthdate 1980 Date of evaluation: 08/10/2020 Provider: Robin Montero, DO CHIEF COMPLAINT Chief Complaint Patient presents with ? Otalgia HISTORY OF PRESENT ILLNESS (Location/Symptom, Timing/Onset, Context/Setting, Quality, Duration, Modifying Factors, Severity) Note limiting factors. I wore a mask for the entirety of this encounter. Sherir Orozco is a 39 y.o. female who presents to the emergency department left ear pain over the past day. Patient states pain is worse when she moves her auricle. Patient states she feels a fullness in her left ear, states the pain is mild intensity. Denies any other chest pain contrast breath, fever, chills, weakness, numbness, abdominal pain, nausea, vomiting, headache. Nursing Notes were reviewed. REVIEW OF SYSTEMS (2+ for level 4; 10+ for level 5) 14 systems reviewed and otherwise acutely negative except as in the ANDREAFSKI. PAST MEDICAL HISTORY History reviewed. No pertinent past medical history. SURGICAL HISTORY Past Surgical History: Procedure Laterality Date ? TYMPANOSTOMY TUBE PLACEMENT CURRENT MEDICATIONS Discharge Medication List as of 08/11/2020 12:21 AM ALLERGIES Patient has no known allergies. FAMILY HISTORY History reviewed. No pertinent family history. SOCIAL HISTORY Social History Socioeconomic History ? Marital status: Unknown Spouse name: None ? Number of children: None ? Years of education: None ? Highest education level: None Occupational History ? None Social Needs ? Financial resource strain: None ? Food insecurity Worry: None Inability: None ? Transportation needs Medical: None Non-medical: None Tobacco Use ? Smoking status: Current Every Day Smoker Packs/day: 0.25 ? Smokeless tobacco: Never Used Substance and Sexual Activity ? Alcohol use: Yes Comment: occationally ? Drug use: Yes Types: Marijuana Comment: occationally ? Sexual activity: None Lifestyle ? Physical activity Days per week: None Minutes per session: None ? Stress: None Relationships ? Social connections Talks on phone: None Gets together: None Attends christian service: None Active member of club or organization: None Attends meetings of clubs or organizations: None Relationship status: None ? Intimate partner violence Fear of current or ex partner: None Emotionally abused: None Physically abused: None Forced sexual activity: None Other Topics Concern ? None Social History Narrative ? None SCREENINGS PHYSICAL EXAM (up to 7 for level 4, 8 or more for level 5) ED Triage Vitals [08/10/202326] BP Temp Temp Source Pulse Resp SpO2 Height Weight (!) 147/102 97.9 ?F (36.6 ?C) Temporal 104 18 100 % -- -- CONSTITUTIONAL: AOx4, no apparent distress, appears stated age HEAD: normocephalic, atraumatic EYES: PERRL, EOMI ENT: moist mucous membranes, uvula midline, erythema and purulence in the left external auditory canal, tympanic membrane was able to visualize and seemed normal, no bulging, tenderness with manipulation of the tragus, no tenderness over the mastoid process NECK: supple, symmetric BACK: symmetric LUNGS: clear to auscultation bilaterally CARDIOVASCULAR: regular rate and rhythm, no murmurs, rubs or gallops ABDOMEN: soft, non-tender, non-distended with normal active bowel sounds : deferred NEUROLOGIC: MAEx4, no focal sensory or motor deficits MUSCULOSKELETAL: no clubbing, cyanosis or edema SKIN: no exposed rash DIAGNOSTIC RESULTS EKG (Per Emergency Physician): RADIOLOGY (Per Emergency Physician): No results found. Interpretation per the Radiologist below, if available at the time of this note: No results found. ED BEDSIDE ULTRASOUND: Performed by ED Physician - none LABS: Labs Reviewed - No data to display All other labs were within normal range or not returned as of this dictation. EMERGENCY DEPARTMENT COURSE and DIFFERENTIAL DIAGNOSIS/MDM: Vitals: Vitals: 08/10/207 BP: (!) 147/102 Pulse: 104 Resp: 18 Temp: 97.9 ?F (36.6 ?C) TempSrc: Temporal SpO2: 100% Medications ibuprofen (ADVIL;MOTRIN) tablet 800 mg (800 mg Oral Given 08/11/20 0032) MDM. Patient presents with signs and symptoms of left otitis externa, no signs of mastoiditis. We will give patient Motrin for pain control and Ciprodex. Encouraged follow-up with PCP. Okay to be discharged. CRITICAL CARE TIME Total Critical Care time was 0 minutes, excluding separately reportable procedures. There was a high probability of clinically significant/life threatening deterioration in the patient's condition which required my urgent intervention. CONSULTS: None PROCEDURES: Unless otherwise noted below, none Procedures FINAL IMPRESSION 1. Infective otitis externa of left ear DISPOSITION/PLAN DISPOSITION Decision To Discharge 08/11/2020 12:20:26 AM PATIENT REFERRED TO: No follow-up provider specified. DISCHARGE MEDICATIONS: Discharge Medication List as of 08/11/2020 12:21 AM START taking these medications Details ciprofloxacin-dexamethas one (CIPRODEX) 0.3-0.1 % otic suspension Place 4 drops into the left ear 2 times daily for 7 days, Disp-1 Bottle,R-0Print ibuprofen (ADVIL;MOTRIN) 800 MG tablet Take 1 tablet by mouth every 8 hours as needed for Pain or Fever, Disp-30 tablet,R-0Print (Please note: Portions of this note were completed with a voice recognition program. Efforts were made to edit the dictations but occasionally words and phrases are mis-transcribed.) Form [id number] Robin Montero DO (electronically signed) Emergency Medicine Provider Robin Montero DO 08/11/20 0120 Normal [facility] CERVICAL SPINE MIN 4Von 07-1 BMI (Body Mass Index) HISTORY: RFE: PAIN CERVICALGIACOMPARISON: None.FINDINGS: 5 views of the cervical spine are submitted for interpretation. [id number] the cervicothoracic junction is visualized on the lateral view. Thevertebral body heights are maintained. Alignment is within normal limits. Diskinterspaces are within normal limits. The base and tip of the odontoid isradiographically intact.IMPRESSION:1. No acute fracture or malalignment. Mild straightening of cervical lordosismay be positional. Electronically Signed by Ferdrick Mcneil 05/03/2017 13:13 Normal [facility] RIGHT HIP 2Von 05-03-2017 RIGHT HIP 2V RIGHT HIP 2VHISTORY: RFE: PAINCOMPARISON: NoneFINDINGS: AP and frog-leg lateral views of the right hip. There is no evidenceof acute fracture or dislocation. The right hip joint is intact.IMPRESSION:1. Unremarkable radiographs of the right hip. Electronically Signed by Osbaldo [id number] Normal [facility] Vital Signs Date Time Vital Sign Value Performing Clinician Facility 04-21-2022 14:58-0400 Body height 152.4 cm No Pcp Required [facility] 04-21-2022 14:58-0400 Body temperature 98.06 [degF] No Pcp Required [facility] 04-21-2022 14:58-0400 Diastolic blood pressure 87 mm[Hg] No Pcp Required [facility] 04-21-2022 14:58-0400 Heart rate 97 /min No Pcp Required [facility] 04-21-2022 14:58-0400 SaO2% (BldA) [Mass fraction] 100 % No Pcp Required [facility] 04-21-2022 14:58-0400 Systolic blood pressure 149 mm[Hg] No Pcp Required [facility] 08-10-2020 23:27-0400 Body Temperature 97.9 [degF] [place], [place] 08-10-2020 23:27-0400 BP Diastolic 102 mm[Hg] [place], [place] 08-10-2020 23:27-0400 BP Systolic 147 mm[Hg] [place] 08-10-2020 23:27-0400 Pulse (Heart Rate) 104 /min [place], [place] 08-10-2020 23:27-0400 Pulse Oximetry 100 % [place], [place] 08-10-2020 23:27-0400 Respiratory Rate 18 /min [place], [place] Encounters Encounter Date Encounter Type Care Provider Facility Start: 02-13-2025 End: 02-13-2025 Emergency department patient visit No Primary Care Physician Facility:[facility] Start: 10-13-2024 End: 10-13-2024 Emergency department patient visit No Primary Care Physician Facility:[facility] Start: 04-21-2022 End: 04-21-2022 Emergency department patient visit Ru Castro [place] [id number] Start: 06-22-2021 End: 06-22-2021 Emergency department patient visit PHYSICIAN NO [facility] Start: 05-25-2021 End: 05-25-2021 [facility] Start: 08-10-2020 End: 08-11-2020 Emergency department patient visit Robin Montero Work Phone: [facility] ED Comment on above: Infective otitis ext pearl of left ear (Primary Dx) Start: 02-01-2018 Ambulatory Aleyda Linda lity:[email or web address] e Start: 12-09-2017 End: 12-09-2017 Emergency department patient visit JOEL GARC[facility] Start: 05-03-2017 Ambulatory LYSSA Carlos y:[facility] Plan of Treatment Date Care Activity Detail Author Start: 06-25-2020 Influenza vaccination Flu vaccine (# 1) [place], [place] Payers Date Payer Category Payer Self-pay 2020 Unknown [id number] 1980 Unknown [id number] 1980 Unknown [id number] 1982 Unknown [id number] Unknown [facility] Unknown [id number] Unknown [id number] Social History Date Type Detail Facility Start: 08-10-[facility] [place] Start: 08-10-2020 Cigarettes smoked current (pack per day) - Reported [place] Start: 08-10-2020 Tobacco use and exposure Never used [place] Start: 08-10-2020 Alcohol intake Current drinke r of alcohol (finding) [place] Start: 08-10-2020 Alcohol Comment occationally [facility] [place]ila [place] Sex Assigned At Not on file [place] Exposure to SARS-CoV -2 (event) Not sure [place] Tobacco smoking consumption unknown [facility] Summary Purpose Family History No Family History Records FoundNo Family History Records FoundNo Family History Records FoundNo Family History Records FoundNo Family History Records FoundNo Family History Records FoundNo Family History Records Found Advance Directives No Advanced Directives Records FoundNo Advanced Directives Records FoundNo Advanced Directives Records FoundNo Advanced Directives Records FoundNo Advanced Directives Records FoundNo Advanced Directives Records FoundNo Advanced Directives Records Found Discharge Instructions * Attachments The following attachments cannot be sent through Care Everywhere. * Otitis Externa (Finnish) * Ears: Keeping Dry Instruction (Finnish) documented in this encounter Assessments Diagnosis Infective otitis externa of left ear Additional Source Comments INFORMATION SOURCE (unrecogn ized section and content) DATE CREATED AUTHOR 04/14/2018 [facility] DATE CREATED AUTHOR AUTHOR'S ORGANIZ ATION 04/20/2018 [facility] DATE CREATED AUTHOR AUTHOR'S ORGANIZ ATION 07/30/2019 [facility] DATE CREATED AUTHOR AUTHOR'S ORGANIZ ATION 08/12/2020 [facility] DATE CREATED AUTHOR AUTHOR'S ORGANIZ ATION 06/29/2021 [facility] DATE CREATED AUTHOR AUTHOR'S ORGANIZ ATION 04/23/2022 [facility] DATE CREATED AUTHOR AUTHOR'S ORGANIZ ATION 02/20/2025 [facility] Reason for Visit (unrecogniz ed section and content) Reason Comments Otalgia <item> Privacy Markings (unrecogniz ed section and content) Section Author: Adelia Pinedo PROHIBITION ON REDISCLOSURE OF CONFIDENTIAL INFORMATION This notice accompanies a disclosure of information concerning a client made to you with the consent of such client. FOR RECORDS PERTAINING TO PATIENTS WHO ARE OR HAVE BEEN ENROLLED IN A CHEMICAL DEPENDENCY/SUBSTANCEABUSE PROGRAM, SOME INFORMATION MAY BE OMITTED. This clinical summary was aggregated from multiple sources. Caution should be exercised in using it in the provision of clinical care. This summary normalizes information from multiple sources, and as a consequence, information in this document may materially change the coding, format and clinical context of patient data. In addition, data may be omitted in some cases. CLINICAL DECISIONS SHOULD BE BASED ON THE PRIMARY CLINICAL RECORDS. [facility] [employer] [facility] provides no warranty or guarantee of the accuracy or completeness of information in this document.
[2025-07-20] MEDS: AMOXICILLIN 500 MG CAPSULE PO (18:36)
[2025-07-20 18:37] VITALS: BP 144/79; PULSE 79; RESP 20; TEMP 36.7; O2SAT 99
--- NOTE | 2025-07-21 01:38 | EDS_ITS ---
HPI History of Present Illness Chief Complaint: Ear Problem Narrative Narrative: Patient is a 44-year-old female presenting emergency department for right ear pain. Patient states she has a prior history of multiple ear infections. States her last 1 was about a year ago. She states that for the past 1 to 2 days she has had some pain in her right ear as well as decreased hearing and a clogged feeling. Denies any fever or chills. Denies any URI symptoms. Denies any neck pain. Denies any history of diabetes or immunocompromise status. PFSH PFSH Home Medications ?Medication ?Instructions ?Recorded ?Last Taken ?Type amoxicillin 875 mg tablet 875 mg PO BID #10 tabs 07/20 Unknown Rx Allergy/AdvReac Type Severity Reaction Status Date / Time No Known Allergies Allergy Verified 07/20/25 11:19 Surgical History Hx of section Social History Smoking Status: Current every day smoker tobacco type: cigarettes ROS ROS ED ROS Narrative See HPI EXAM Physical Exam Narrative Exam Narrative: Vital signs: Reviewed General: Alert and oriented x 3. No acute distress HEENT: Head is normocephalic and atraumatic, sinuses nontender, pupils equal round and reactive. Nares are patent. Oropharynx and throat exams normal. Left TM is unremarkable, no bulging or erythema. No pain with movement of the tragus or pinna on the right. There is no evidence of otitis externa normal ear canal. There is bulging of the right TM. No erythema noted. No swelling or erythema behind the ear consistent with mastoiditis. Neck: Supple without lymphadenopathy nontender. Normal active range of motion. Cardiovascular: Regular rate and rhythm, no murmurs. No rubs or gallops. Normal S1 and S2 Respiratory: Clear to auscultation bilaterally. No wheezes, rales, rhonchi Abdominal: Soft and nontender. Normal bowel sounds. No guarding or rebound. Nonsurgical abdomen Extremities: No tenderness. No bruising. Normal range of motion. Normal sensation. Skin: No rash or redness. The rest of the physical exam is unremarkable Const Vital Signs: 07/20/25 11:17 07/20/25 17:21 07/20/25 18:37 Temperature 98.6 F 98.1 F Temperature Source Oral Pulse Rate 89 72 79 Respiratory Rate 16 20 H 20 H Blood Pressure 135/82 H 123/73 H 144/79 H Blood Pressure Mean 99 89 100 Pulse Ox 98 96 99 Oxygen Delivery Method Room Air Room Air MDM MDM MDM Narrative Medical decision making narrative: Patient is a 44-year-old female presenting to emergency department for right ear pain for the past 2 days. Patient was seen and examined. Vitals are stable. Patient resting bed comfortably no acute distress. On physical exam, there is no evidence of otitis externa, mastoiditis, cellulitis. There is bulging of the right sided TM. Given the patient's symptoms we will treat with antibiotics. No systemic infection signs. Patient given first dose of antibiotics here. Discharged home on antibiotics. Patient discharged from the Emergency Department. I do not feel that the patient's evaluation reveals any acute reason for admission at this time. I instructed them to either follow-up with their primary care physician or promptly return to the Emergency Department for reevaluation should symptoms worsen or new symptoms develop. I explained what symptoms would indicate the need to return to the emergency department. Shared decision making was used. The patient voiced understanding of the treatment plan and is agreeable with it. Clinical impression Right acute otitis media History & Record Review Discussion w/independent historian: Patient Discharge Plan Triage Chief Complaint: Ear Problem ED Provider: Loida Rivas Dx/Rx/DC Orders Clinical Impression: Otitis media Instructions: ED Otitis Media Adult Prescriptions: New amoxicillin 875 mg tablet 875 mg PO BID Qty: 10 0RF Primary Care Provider: Care Physician,No Primary Referrals: Lexa Hernandez MD [Med Staff - Courtesy Staff, Ear Nose Throat (ENT)] - 3-5 Days if not improving Olya Escalera MD [Med Staff - Household Refrigeration Mechanic, Internal Medicine] - 3-5 Days if not improving Care Physician,No Primary [Primary Care Provider, Medical] Activity Restrictions/Additional Instructions: Take the antibiotic as prescribed. Your evaluation in the Emergency Department did not reveal any acute reason for admission. However, I want to emphasize that you may be early in the course of a disease process or illness even if it is not present. For this reason you should follow-up within 24 hours for reevaluation with either your primary care physician or if necessary back here in the Emergency Department. You should return to the Emergency Department immediately if your symptoms worsen or new symptoms develop. Print Language: Somali Disposition Disposition: Home, Self Care Discharge Date/Time: 07/20/25 18:37
== END 2025-07-20 18:37 | disposition home or self-care (01) ==
PROVIDERS: Emergency Provider Student in an Organized Health Care Education/Training Program; Visit Provider Student in an Organized Health Care Education/Training Program
DX: H66.91 Otitis media, unspecified, right ear (principal); F17.210 Nicotine dependence, cigarettes, uncomplicated
CPT/HCPCS: 99282